=== PATIENT | female | born 1990 | race Caucasian/White ===

== ENCOUNTER 2024-10-02 11:25 | Outpatient (AMB) | payer OTHER, SELFPAY ==
--- NOTE | 2024-10-02 10:50 | A.OFFPC_ITS ---
Vital Signs 10/02/24 11:34 Height 5 ft 9.09 in Weight 153 lb 2 oz BMI 22.6 BP 130/82 Blood Pressure Location Lt brachial Position Sitting Respiration 16 Pulse 84 Pulse Source Pulse Oximeter Temp 98.0 F Temp Source Temporal Artery Scan Pulse Oximetry (%) 100 Oxygen Delivery Method Room Air Intake Visit Reasons: Establish care; bruising easily Asbestos Remover Required: No Accompanied by: Self / Same As Patient Allergies No Known Allergies Allergy (Verified 10/02/24 17:12) Medication List - Last Reconciled 10/02/24 by My Yadav PA-C lisdexamfetamine (Vyvanse) 30 mg PO DAILY Tobacco use date assessed: 10/02/24 Dental Screening Dental Screen Date: 10/02/24 Did you have a dental visit in the last 12 months?: No Did you have a dental problem in the last 6 months where you did not have access to dental care?: No Was dental information given to patient?: Patient has dentist HPI Establish care; bruising easily HPI Details The patient is a 33-year-old female presenting with a new patient appointment, annual physical exam and evaluation of bruising and hormonal concerns. The patient reports a history of Attention Deficit Hyperactivity Disorder (ADHD) for which she is currently prescribed Vyvanse by her psychiatrist. She has been on this medication for a significant period and has a good relationship with her therapist. The patient describes experiencing significant bruising without any known trauma, which she attributes to possible iron deficiency. She has not had a primary care physician for some time and has not undergone recent blood work. The patient also reports hormonal imbalances, including a decreased libido. She has not been on control for a significant period and expresses concerns about her hormonal status affecting her relationship. Social History - Family status: The patient is a mother and has a fianc?. - Family planning: The patient has a his tory of using an intrauterine device (IUD) for contraception. [facility] Medical History (Updated 10/02/24 @ 17:16 by My Yadav PA-C) Hormone imbalance DIANNA (iron deficiency anemia) ADHD Annual physical exam Low libido Family History Father No problems noted. Mother No problems noted. Social History Housing: House Alcohol intake: current Alcohol intake frequency: holidays/special occasions only Patient Tobacco Use Status: Never used Tobacco service: No Current occupational status: employed Cognitive needs: No Hearing needs: No Vision needs: Yes (rx glasses) Questionnaire PHQ-9 Over the last 2 weeks, how often have you been bothered by any of the following problems? 1. Little interest or pleasure in doing things: not at all 2. Feeling down, depressed, or hopeless: not at all 3. Trouble falling or staying asleep, or sleeping too much: not at all 4. Feeling tired or having little energy: not at all 5. Poor appetite or overeating: not at all 6. Feeling bad about yourself - or that you are a failure or have let yourself or your family down: not at all 7. Trouble concentrating on things, such as reading the newspaper or watching television: not at all 8. Moving or speaking so slowly that other people could have noticed. Or the opposite - being so fidgety or restless that you have been moving around a lot more than usual: not at all 9. Thoughts that you would be better off or of hurting yourself in some way: not at all Total score: 0 Depression Screening Interpretation: Negative Depression Screening Done: Yes 21424 - PHQ-9 Billing: Yes Source: Developed by Drs. Wesley Lewis, Elaine Bingham, Arian Londono and colleagues, with an educational trudy from [employer]. Thrive Questionnaire Date Thrive assessed: 10/02/24 I am a: Patient What is your living situation today?: I have a steady place to live Within the past 12 months, did the food you bought not last and you didn't have the money to get more?: Never true Within the past 12 months, did you worry whether your food would run out before you got money to buy more?: Never true Do you have trouble paying for medicines?: No Do you have trouble getting transportation to medical appointments?: No Do you have trouble paying your heating and electricity bill?: No Do you have trouble taking care of your child, family member or friend?: No Do you have trouble with day-to-day activities such as bathing, preparing meals, shopping, managing finances, etc.?: No Are you currently unemployed and looking for a job?: No Are you interested in more education?: No Please select the resources that you would like help with: None Currently or been in a relationship where the following occur: No concerns reported THRIVE Score: 0 AUDIT C Alcohol Use Questionnaire (AUDIT-C) 1. How often do you have a drink containing alcohol?: Monthly or less 2. How many drinks containing alcohol do you have on a typical day when you are drinking?: 1 or 2 3. How often do you have six or more drinks on one occasion?: Never Total Score: 1 Score Reviewed/Action Taken: No PATRICIA-7 AMB Questionnaire PATRICIA-7 Date PATRICIA - 7 assessed: 10/02/24 Feeling nervous, anxious, or on edge: 0 = Not at all Not being able to stop or control worryin = Not at all Worrying too much about different things: 0 = Not at all Trouble relaxin = Not at all Being so restless that it is hard to sit still: 0 = Not at all Becoming easily annoyed or irritable: 0 = Not at all Feeling afraid as if something awful might happen: 0 = Not at all Total PATRICIA-7 score (0-4 normal; 5-9 mild; 10-14 moderate; 15-21 severe): 0 Source: Developed by Drs. Wesley Lewis, Elaine Bingham, Arian Londono and colleagues, with an educational trudy from [employer]. PATRICIA-7 Assessment Billing PATRICIA-7 Assessment Tool: PATRICIA-7 Assessment 66479 Review of Systems Const Details: - General: Denies unintentional weight loss. - Cardiovascular: Denies chest pain. - Respiratory: Denies dyspnea. - Gastrointestinal: Denies abdominal pain, black or bloody stools. - Hematologic: Reports easy bruising without trauma. - Endocrine: Reports decreased libido. All systems reviewed & are unremarkable except as noted in HPI and below Physical exam (Primary Care) Vital Signs: Last Vital Signs Temp 98.0 F 10/02/24 11:34 Pulse 84 10/02/24 11:34 Resp 16 10/02/24 11:34 BP 130/82 10/02/24 11:34 Pulse Ox 100 10/02/24 11:34 Oxygen Delivery Method Room Air 10/02/24 11:34 Care Plan Goal for BP management: <140/90 at Goal BMI result Body Mass Index 22.6 normal bmi Tobacco/Smoking Status: Tobacco use Status Tobacco use date assessed 10/02/24 10/02/24 10:53 Patient Tobacco Use Status Never used Tobacco 10/02/24 11:33 PHQ-9: PHQ-9 Score PHQ-9: Total score 0 10/02/24 11:51 Depression Screening Interpretation: Negative Thrive Assessment: Date of Thrive Assessment Date Thrive assessed 10/02/24 10/02/24 10:53 Currently or been in a relationship where the following occur: No concerns reported Const Other: Appearance: Alert. Oriented X3. No acute distress. Head: Normal external exam. Normocephalic. Atraumatic. Eyes: Pupils are equal, round, and reactive to light. Extraocular movements intact. Conjunctiva and sclera normal. Eyelids normal. Ears: External auditory canal normal. Tympanic membranes normal. Throat: Pharynx normal. Uvula midline. Moist mucous membranes. Neck: Normal inspection. Neck supple. Full range of motion. No adenopathy. Thyroid Normal. No meningeal signs. No neck mass noted. Cardiovascular: Normal heart rate and rhythm. Heart sound normal. No murmurs noted. Pulses normal throughout. Respiratory: No respiratory distress. Painless inspiration. Breath sounds normal. No wheezes/rales/rhonchi noted. No accessory muscle usage noted or dec reased air movement noted. Abdomen: Soft and nontender. No distention noted. No organomegaly noted. Back: No costovertebral angle tenderness. Full range of motion noted. Skin: Skin warm and dry. Normal skin color. Normal skin turgor. No rashes/lesions/lacerations noted. Bruising noted on legs. Extremities: No lower extremity edema. Extremities exhibit normal range of motion. Extremities nontender. Neuro: Oriented X 3. No motor deficit. No sensory deficit. Reflexes normal. Coding Level of Care Code New Pt Level 4 (67954) New Pt Prev Care 18-39yr(63693 Diagnoses Annual physical exam Z00.00 ADHD F90.9 DIANNA (iron deficiency anemia) D50.9 Hormone imbalance E34.9 Additional Codes PATRICIA-7 Assessment Billing - PATRICIA-7 Assessment Tool: PATRICIA-7 Assessment 76358 ([id number]) PHQ-9 - 52341 - PHQ-9 Billing: Yes ([id number]) Assessment & Plan Assessment & Plan (1) Annual physical exam: Code(s): Z00.00 - Encounter for general adult medical examination without abnormal findings Category: Medical (2) ADHD: Code(s): F90.9 - Attention-deficit hyperactivity disorder, unspecified type Category: Medical Plan: The patient will continue her current medication, Vyvanse, as prescribed by her psychiatrist. (3) DIANNA (iron deficiency anemia): Code(s): D50.9 - Iron deficiency anemia, unspecified Category: Medical Plan: A comprehensive blood panel including CBC, CMP, and iron studies will be conducted to evaluate the cause of bruising and assess iron levels. (4) Hormone imbalance: Code(s): E34.9 - Endocrine disorder, unspecified Category: Medical Plan: Hormonal evaluation including estrogen, luteinizing hormone, progesterone, prolactin, testosterone, and FSH will be performed to assess the patient's hormonal status. Thyroid function tests will also be conducted to rule out thyroid dysfunction as a cause of decreased libido. Plan Plan Patient was informed and verbally consented to the use of an ambient scribe for clinic note documentation during this visit. 1. Attention Deficit Hyperactivity Disorder (Adhd) The patient will continue her current medication, Vyvanse, as prescribed by her psychiatrist. 2. Iron Deficiency Anemia A comprehensive blood panel including CBC, CMP, and iron studies will be conducted to evaluate the cause of bruising and assess iron levels. 3. Hormonal Imbalance Hormonal evaluation including estrogen, luteinizing hormone, progesterone, prolactin, testosterone, and FSH will be performed to assess the patient's hormonal status. Thyroid function tests will also be conducted to rule out thyroid dysfunction as a cause of decreased libido. I discussed with the patient the plan to conduct a comprehensive blood panel to evaluate her iron levels and hormonal status. We also talked about the importance of fasting before the blood tests and the potential need for hormone replacement therapy if abnormalities are found. The patient was advised to follow up after the results are available to discuss further management options. Orders: Orders C Reactive Protein Today Z00.00 - Encounter for general adult medical examination without abnormal findings Complete Blood Count Auto Diff Today Z00.00 - Encounter for general adult medical examination without abnormal findings Comprehensive Elizabeth. Panel Fast Today Z00.00 - Encounter for general adult medical examination without abnormal findings Lipid Panel Today Z00.00 - Encounter for general adult medical examination without abnormal findings Liver Panel Today Z00.00 - Encounter for general adult medical examination without abnormal findings Ferritin Today D64.9 - Anemia, unspecified Vitamin B12 and Folate Today Z00.00 - Encounter for general adult medical examination without abnormal findings Testosterone, Free/Total Today Z00.00 - Encounter for general adult medical examination without abnormal findings Follicle Stimulating Hormone Today R68.82 - Decreased libido Sex Hormone Binding Globulin Today R68.82 - Decreased libido Magnesium Today Z00.00 - Encounter for general adult medical examination without abnormal findings IRON PROFILE Today D64.9 - Anemia, unspecified Hemoglobin A1c Today Z00.00 - Encounter for general adult medical examination without abnormal findings TSH reflex Free T4 Today Z00.00 - Encounter for general adult medical examination without abnormal findings Vitamin D 25-OH Total Today Z00.00 - Encounter for general adult medical examination without abnormal findings Prolactin Today Z00.00 - Encounter for general adult medical examination without abnormal findings Progesterone Today Z00.00 - Encounter for general adult medical examination without abnormal findings Estrogen Today Z00.00 - Encounter for general adult medical examination without abnormal findings Lutenizing Hormone Today R68.82 - Decreased libido Patient Instructions: - Continue taking Vyvanse as prescribed by your psychiatrist. - Schedule and complete the recommended blood tests, ensuring you fast for 10-12 hours prior. - Follow up with the clinic once blood test results are available to discuss further management.
[2024-10-02 11:34] VITALS: BP 130/82; PULSE 84; RESP 16; TEMP 36.7; O2SAT 100; BMI 22.6
--- OUTSIDE RECORDS SUMMARY | 2024-10-02 12:45 | XMS_ITS | Clinical Summary ---
Author Organization [facility] Address [address] [facility] [address] [place] [phone] Phone Care Team Providers Care Adjustment Supervisor Name Role Phone Unavailable Primary Care Provider Unavailabl e Encounters Date Type Department Care Team Description 08/02/2024 Orders Only [facility] Otolaryngology [address] [facility] [place] [address] Malathi Chavarria NP from Last 3 Months Social History Tobacco Use Types Packs/Day Years Used Date Smoking Tobacco: Never Assessed Education Answer Date Recorded Are you interested in more education? Not on keysha e 06/02/2022 Are you concerned about learning? Not on file 06/02/2022 No 06/02/2022 No 06/02/2022 Digital Access Answer Date Recorded No 07/01/2022 No 07/01/2022 No 07/01/2022 Reliable internet access at home? Not on file 07/01/2022 Device with a working camera? Not on file Comments Unknown Sex and Gender Information Value Date Recorded Sex Assigned at Not on file Legal Sex Female 3:37 PM EDT Gender Identity Not on file Sexual Orientation Not on file Plan of Treatment Health Maintenance Due Date Last Done Comments Adult Td,Tdap Booster 1988 DEPRESSION SCREENING 2000 SMOKING Hx and SMOKELESS TOBACCO SCREENING 2001 HEPATITIS C SCREENING 2006 HIV ONE-TIME SCREENING (18-6 5 YEARS) 2006 PAP SMEAR 2009 COVID-19 VACCINE (2023-2 5 season) 2023 03/29/2021, 03/07/2021 HEPATITIS A VACCINES Aged Out No long er eligible based on patient's age to complete this topic HIB VACCINES Aged Out No longer eligi ble based on patient's age to complete this topic MENINGOCOCCAL VACCINES (ACWY) Aged Out No longer eligible based on patient's age to complete this topic MENINGOCOCCAL VACCINES (B) Aged Out N o longer eligible based on patient's age to complete this topic PNEUMOCOCCAL VACCINES (0-49 years) Aged Out No longer eligible b ased on patient's age to complete this topic Medical Devices Not on file Additional Source Comments The information contained in this document represents components of the legal health record. It is not the complete legal health record.[facility]
--- OUTSIDE RECORDS SUMMARY | 2024-10-02 12:45 | XMS_ITS | Clinical Summary ---
Author Organization [facility] Address [address] [place] [address] Care Team Providers Care [employer] Architect Name Role Phone Unavailable Primary Care Provider Unavailabl e Social History Tobacco Use Types Packs/Day Years Used Date Smoking Tobacco: Never Assessed Sex and Gender Information Value Date Recorded Sex Assigned at Not on file Gender Identity Not on file Sexual Orientation Not on file Plan of Treatment Not on file
== END 2024-10-02 14:40 | disposition home or self-care (01) ==
LOC: HO.HMCSH 11:25
PROVIDERS: PCP Physician Assistant Medical; Visit Provider Physician Assistant Medical
DX: Z00.00 Encounter for general adult medical examination without abnormal findings (principal); D50.9 Iron deficiency anemia, unspecified; F90.9 Attention-deficit hyperactivity disorder, unspecified type; E34.9 Endocrine disorder, unspecified

== ENCOUNTER → 2024-10-02 11:25 | Outpatient (BNVA) | payer OTHER, SELFPAY | PROVIDERS: PCP Physician Assistant Medical; Visit Provider Physician Assistant Medical | DX: Z00.00 Encounter for general adult medical examination without abnormal findings (principal); F90.9 Attention-deficit hyperactivity disorder, unspecified type; R68.82 Decreased libido; D50.9 Iron deficiency anemia, unspecified | CPT/HCPCS: 96127 ==

== ENCOUNTER 2024-10-03 08:22 | Outpatient (REF) | payer OTHER, SELFPAY ==
--- OUTSIDE RECORDS SUMMARY | 2024-10-03 09:05 | XMS_ITS | Clinical Summary ---
Author Organization [facility] Address [address] [place] [address] Care Team Providers Care Meat Dresser Name Role Phone Unavailable Primary Care Provider Unavailabl e Social History Tobacco Use Types Packs/Day Years Used Date Smoking Tobacco: Never Assessed Sex and Gender Information Value Date Recorded Sex Assigned at Not on file Gender Identity Not on file Sexual Orientation Not on file Plan of Treatment Not on file
--- OUTSIDE RECORDS SUMMARY | 2024-10-03 09:05 | XMS_ITS | Clinical Summary ---
Author Organization [facility] Address [address] [facility] [address] [place] [phone] Phone Care Team Providers Care Silverware Cleaner Name Role Phone Unavailable Primary Care Provider Unavailabl e Encounters Date Type Department Care Team Description 08/02/2024 Orders Only [facility] Otolaryngology [address] [facility] [place] [address] Malathi Chavarria NP from Last 3 Months [...] VACCINE (2023-2 5 season) 2023 03/29/2021, 03/07/2021 INFLUENZA VACCINE (#1) 2024 HEPATITIS A VACCINES Aged Out No long [...] It is not the complete legal health record.[facility]
[2024-10-03 10:04] LABS: MANUAL DIFF FLAG NO
[2024-10-03 10:21] LABS: Hematocrit 39.4 % (37.0-47.0); Hemoglobin 14.0 g/dl (12.0-16.0); Imm Gran Abs Auto 0.01 X10*3/uL (0.00-0.03); Imm Gran Pct Auto 0.3 % (0.0-0.4); Lymphocytes Absolute Auto 1.4 X10*3/uL (1.2-4.9); Mean Corpuscular HGB Conc 35.5 g/dl (31.0-35.0); Mean Corpuscular Hemoglobin 32.7 pg (27.0-33.0); Mean Corpuscular Volume 92.1 fL (80.0-98.0); NRBC Abs Auto 0.000 X10*3/uL (0.0-0.012); NRBC Pct Auto 0.0 /100WBC (0.0-0.2); Platelet Count 239 X10*3/uL (160-400); Red Blood Count 4.28 X10*6/uL (4.20-5.50); White Blood Count 3.6 X10*3/uL (4.8-10.8)
[2024-10-03 10:32] LABS: Hemoglobin A1C 106.1693 umol/L; Total Hemoglobin (HGBA1C) 3637.6758 umol/L
[2024-10-03 11:35] LABS: Alanine Aminotransferase 20 U/L (0-31); Albumin Level 4.5 g/dL (3.5-5.0); Alkaline Phosphatase 39 U/L (39-117); Anion Gap 12 (12-20); Aspartate Amino Transferase 23 U/L (5-31); Blood Urea Nitrogen 12 mg/dL (9-16); Calcium 9.0 mg/dL (8.4-10.2); Carbon Dioxide 25 mmol/L (22-29); Chloride 106 mmol/L (96-108); Cholesterol 182 mg/dL (<200); Estimated Glomerular Filt Rate > 60; HDL Cholesterol 77 mg/dL (>40); Iron 112 mcg/dL (30-160); Magnesium 2.0 mg/dL (1.6-2.6); Percent Iron Saturation 40 % (15-50); Potassium 3.7 mmol/L (3.3-5.1); Sodium 139 mmol/L (135-145); Total Iron Binding Capacity 280 mcg/dL (228-428); Total Protein 7.2 g/dL (6.5-8.0); Triglycerides 38 mg/dL (<150); Unsaturated Iron Binding 168 ug/dL
[2024-10-03 11:48] LABS: Folate 14.5 ng/mL (> or = 4.0); Vitamin B12 772 pg/mL (200-900)
[2024-10-03 11:59] LABS: Ferritin 33 ng/mL (10-122)
[2024-10-04 09:43] LABS: Follicle Stimulating Hormone 5.1 mIU/mL
[2024-10-09 17:28] LABS: Testosterone, Free 2.1 pg/mL (0.1-6.4)
== END 2024-10-03 08:23 | disposition home or self-care (01) ==
LOC: HO.HMGCLDS 08:22
PROVIDERS: PCP Physician Assistant Medical; Visit Provider Physician Assistant Medical
DX: Z00.00 Encounter for general adult medical examination without abnormal findings (principal); R68.82 Decreased libido; D64.9 Anemia, unspecified; Z13.6 Encounter for screening for cardiovascular disorders; Z13.1 Encounter for screening for diabetes mellitus
CPT/HCPCS: 36415; 80053; 80061; 80076; 82248; 82306; 82607; 82672; 82728; 82746; 83001; 83002; 83036; 83540; 83735; 84144; 84146; 84270; 84402; 84403; 84443; 85025; 86140